=== PATIENT | female | born 1940 | race Caucasian/White ===

== ENCOUNTER 2020-01-03 07:56 | Emergency (ER) | payer MEDICARE ==
[~2020-01-03] VITALS: Ht 170.2 cm; Wt 76.2 kg
[~2020-01-03 07:56] MED LIST: DIOVAN80 MG PO; EVISTA60 MG PO; LIPITOR20 MG; METOPROLOL TART25 MG PO; NORVASC5 MG PO; OMEPRAZOLE40 MG; ZETIA10 MG PO
[2020-01-03] MEDS ORDERED: TETANUS/DIPHTHERIA TOX ADULT 0.5 ML SYR IM ONE (08:30)
--- NOTE | 2020-01-03 08:46 | Emergency Department Note ---
History of Present Illnes History of Present Illness Chief Complaint: General Medicine Complaints History of Present Illness This is a 79 year old female Patient states that around 0700 she fell at home from a standing position, tripped over threshold from tile to carpet. Hit head but patient denies any dizziness, vertigo or LOC. 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 Any updates have been documented here. Past Medical History Recent Fever: No Clinical Suspicion of Infectio: No New/Unexplained Change in Ment: No Past Medical History: Hypertension, CAD, Hyperlipedemia Other Medical History: CIPD (autoimmune disorder) Other Surgery: Bypass 2009 Social History Smoking Cessation: Never Smoker Counseling Performed: No Alcohol Use: None Any Illegal Drug Use: No TB Exposure/Symptoms: No Physically hurt or threatened: No Family History Family history of heart diseas: Yes Other Last Tetanus: UTD Any Pre-Existing Lines (PICC,: No Review of Systems Review of Systems Constitutional: Reports no symptoms EENTM: Reports no symptoms Cardiovascular: Reports no symptoms Respiratory: Reports no symptoms Gastrointestinal: Reports no symptoms Genitourinary: Reports no symptoms Musculoskeletal: Reports as per HPI Integumentary: Reports no symptoms Neurological: Reports as per HPI Psychological: Reports no symptoms Endocrine: Reports no symptoms Hematological/Lymphatic: Reports no symptoms Physical Exam Related Data Allergies: Coded Allergies: Shellfish (Verified Allergy, Intermediate, hives swelling, 07/11/14) sulfamethoxazole (Verified Allergy, Mild, itching, 01/03/20) trimethoprim (Verified Allergy, Mild, itching, 01/03/20) Triage Vital Signs Vital Signs Date Time Temp Pulse Resp B/P (MAP) Pulse Ox O2 Delivery O2 Flow Rate FiO2 01/03/20 08:10 98.0 71 18 174/69 100 Room Air Vital signs reviewed: Yes Physical Exam CONSTITUTIONAL Constitutional: Present well-developed, Present well-nourished HENT HENT: Present normocephalic, Present oropharynx clear/moist, Present oropharynx normal, Present other (6 cm hematoma to right supra-orbital forehead, small superficial abrasion to nasal bridge. denies epistaxis & no septal hematoma); Absent nasal discharge, Absent rhinorrhea HENT L/R: Present left ext ear normal, Present right ext ear normal EYES Eyes: Reports PERRL, Reports conjunctivae normal NECK Neck: Present ROM normal PULMONARY Pulmonary: Present effort normal, Present breath sounds normal CARDIOVASCULAR Cardiovascular: Present regular rhythm, Present heart sounds normal, Present capillary refill normal, Present normal rate GASTROINTESTINAL Abdominal: Present soft, Present nontender, Present bowel sounds normal GENITOURINARY Genitourinary: Present exam deferred SKIN Skin: Present other (small superficial abrasion to bridge of nose) MUSCULOSKELETAL Musculoskeletal: Present ROM normal NEUROLOGICAL Neurological: Present alert, Present oriented x 3, Present no gross motor or sensory deficits PSYCHOLOGICAL Psychological: Present mood/affect normal, Present judgement normal Results Imaging Imaging results reviewed: Yes Impressions CT BRAIN WO HISTORY: Trauma COMPARISON: None. Technique: Noncontrast axial scans were obtained from skull base to the vertex. Coronal and sagittal reconstructions obtained from the axial data. One or more of the following dose reduction techniques were used: Automated exposure control, adjustment of the mA and/or kV according to patient size, and/or utilization of iterative reconstruction technique. DISCUSSION: Scalp/Skull: Right frontal scalp/supraorbital hematoma. No calvarial fracture. Brain sulci: Mildly prominent. Ventricles: Compensatory dilatation. Extra-axial spaces: No masses or fluid collections. Carotid siphon calcifications are present. Parenchyma: Mild bilateral deep white matter hypodensity is likely chronic microvascular ischemic change. There is an old small cortical infarct in the left posterior cerebellum. Otherwise, no masses, hemorrhage, or large vascular territory acute infarct. Dural sinuses: No abnormal densities. Sellar/Suprasellar region: Intact. Skull base: Intact. Incidental findings: None. IMPRESSION: 1. No acute intracranial abnormalities. 2. Mild supratentorial chronic microvascular ischemic change. Mild generalized cerebral volume loss. 3. 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 Signed by: Dr. Eric Oliver M.D. on 01/03/2020 9:32 AM Assessment & Plan Medical Decision Making MDM s/p fall tripped over threshold, hit head with hematoma to right forehead, on Pletal for CAD - check CT head and c-spine - r/o intracerebral hemorrhage, c- spine fx Reassessment Reassessment f/u PCP, Tylenol as directed, Head sheet precautions, RTED prn Assessment & Plan Final Impression: (1) Fall (2) Traumatic hematoma of forehead (3) Abrasion of nose Depart Disposition: HOME, SELF-CARE Last Vital Signs Date Time Temp Pulse Resp B/P (MAP) Pulse Ox O2 Delivery O2 Flow Rate FiO2 01/03/20 08:10 98.0 71 18 174/69 100 Room Air Home Meds Reported Medications Omeprazole (OMEPRAZOLE) 40 Mg Capsule., 07/11/14 Metoprolol Tartrate (METOPROLOL TARTRATE) 25 Mg Tablet, 25 MG PO BID, TAB 07/11/14 Amlodipine Besylate (NORVASC) 5 Mg Tab, 10 MG PO DAILY, #30 TAB 15 Valsartan (DIOVAN) 80 Mg Tab, 80 MG PO DAILY, TAB 15 Raloxifene Hcl (EVISTA) 60 Mg Tablet, 60 MG PO DAILY, #30 TAB 07/11/14 Atorvastatin Calcium (LIPITOR) 20 Mg Tablet, 10 MG DAILY, #30 TAB 15 Ezetimibe (ZETIA) 10 Mg Tablet, 10 MG PO DAILY, #30 TAB 15 Medications in the ED Tetanus/ Diphtheria Toxoids 0.5 ml ONCE ONCE IM ; Start 01/03/20 at 08:30; Stop 01/03/20 at 08:31; Status DC CHRISTEL COURTNEY MD Jan 03, 2020 08:46
--- NOTE | 2020-01-03 09:36 | Diagnostic Imaging Report ---
CT BRAIN WO HISTORY: Trauma COMPARISON: None. Technique: Noncontrast axial scans were obtained from skull base to the vertex. Coronal and sagittal reconstructions obtained from the axial data. One or more of the following dose reduction techniques were used: Automated exposure control, adjustment of the mA and/or kV according to patient size, and/or utilization of iterative reconstruction technique. DISCUSSION: Scalp/Skull: Right frontal scalp/supraorbital hematoma. No calvarial fracture. Brain sulci: Mildly prominent. Ventricles: Compensatory dilatation. Extra-axial spaces: No masses or fluid collections. Carotid siphon calcifications are present. Parenchyma: Mild bilateral deep white matter hypodensity is likely chronic microvascular ischemic change. There is an old small cortical infarct in the left posterior cerebellum. Otherwise, no masses, hemorrhage, or large vascular territory acute infarct. Dural sinuses: No abnormal densities. Sellar/Suprasellar region: Intact. Skull base: Intact. Incidental findings: None. IMPRESSION: 1. No acute intracranial abnormalities. 2. Mild supratentorial chronic microvascular ischemic change. Mild generalized cerebral volume loss. 3. 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 Signed by: Dr. Eric Oliver M.D. on 01/03/2020 9:32 AM
--- NOTE | 2020-01-03 09:47 | Diagnostic Imaging Report ---
CT CERVICAL SPINE WO HISTORY: Trauma COMPARISON: Concurrent head CT TECHNIQUE: CT of the cervical spine without contrast. Sagittal and coronal reformations were created. One or more of the following dose reduction techniques were used: Automated exposure control, adjustment of the mA and/or kV according to patient size, and/or utilization of iterative reconstruction technique. FINDINGS: Bone demineralization limits evaluation. Cervical lordosis is preserved. There is no scoliosis. No definite acute fracture or compression deformity is seen. The craniocervical junction is intact. No gross spinal canal masses are seen. The paravertebral and paraspinal soft tissues are unremarkable. There are advanced spondylotic changes at C5-C6 and C6-C7. Prominent multilevel bilateral facet arthrosis is present; there is associated mild grade 1 anterolisthesis of C7 on T1. Prominent atlantoaxial arthrosis is present as well. There is at least mild canal stenosis at C5-C6 and C6-C7 due to posterior disc osteophyte complexes. Multilevel foraminal stenoses due to uncovertebral and facet arthrosis are also present - moderate bilaterally at C5-C6 and C6-C7. There is mild scarring in the lung apices. Mild bilateral carotid bulb calcified plaque is present. IMPRESSION: 1. No acute osseous abnormalities. 2. Degenerative changes as described above. Signed by: Dr. Eric Oliver M.D. on 01/03/2020 9:44 AM
[2020-01-03 09:55] VITALS: BP 174/92
== END 2020-01-03 10:32 | disposition home or self-care (01) ==
LOC: ER 08:15
DX: S00.83XA Contusion of other part of head, initial encounter (principal); S00.31XA Abrasion of nose, initial encounter; W01.0XXA Fall on same level from slipping, tripping and stumbling without subsequent striking against object, initial encounter; Y93.01 Activity, walking, marching and hiking; Y92.008 Other place in unspecified non-institutional (private) residence as the place of occurrence of the external cause; I10 Essential (primary) hypertension; I25.10 Atherosclerotic heart disease of native coronary artery without angina pectoris; E78.5 Hyperlipidemia, unspecified; Z86.2 Personal history of diseases of the blood and blood-forming organs and certain disorders involving the immune mechanism
CPT/HCPCS: 70450; 72125; 90714; 99283

== ENCOUNTER 2020-09-26 08:55 | Emergency (ER) | payer MEDICARE ==
[~2020-09-26] VITALS: Ht 170.2 cm; Wt 76.2 kg
== END 2020-09-26 11:52 | disposition home or self-care (01) ==
LOC: ER 09:24
DX: M79.605 Pain in left leg (principal); I82.412 Acute embolism and thrombosis of left femoral vein; I10 Essential (primary) hypertension; E78.5 Hyperlipidemia, unspecified; I25.10 Atherosclerotic heart disease of native coronary artery without angina pectoris
CPT/HCPCS: 93970; 99283

== ENCOUNTER 2021-09-22 16:37 | Emergency (ER) | payer MEDICARE ==
[~2021-09-22] VITALS: Ht 170.2 cm; Wt 76.2 kg
[2021-09-22 18:41] LABS: BASOPHILS % 0.7 % (0.0-1.0); EOSINOPHILS % 0.7 % (0.0-6.0); HEMOGLOBIN 10.9 g/dL (12.0-16.0); LYMPHOCYTES # (AUTO) 1.1 (1.0-3.2); LYMPHOCYTES % 27.4 % (18.0-39.1); MEAN CORPUSCULAR HGB CONC 34.1 g/dL (31-35); MEAN CORPUSCULAR VOLUME 85.1 fL (81-99); MONOCYTES # (AUTO) 0.5 (0.2-0.8); MONOCYTES % 12.3 % (4.4-11.3); NEUTROPHILS # (AUTO) 2.4 (2.1-6.9); NEUTROPHILS % 58.7 % (38.7-80.0); PLATELET COUNT 169 x10e3/uL (140-360); RED BLOOD COUNT 3.76 x10e6/uL (3.6-5.1); RED CELL DISTRIBUTION WIDTH 14.1 % (11.7-14.4)
[2021-09-22 18:57] LABS: ALBUMIN/GLOBULIN RATIO 0.5 (0.8-2.0); CALCIUM 8.6 mg/dL (8.4-10.2); CREATININE, SERUM 1.31 mg/dL (0.57-1.11)
[2021-09-22 19:09] LABS: CREATINE KINASE MB 4.2 ng/mL (0-5.0)
[2021-09-22] MEDS ORDERED: HYDRALAZINE HCL 20 MG/ML VIAL IV STA (19:19)
[2021-09-22] MEDS ORDERED: SODIUM CHLORIDE 0.9% 500ML 500 ML IV STA (19:19)
[2021-09-22] MEDS ORDERED: HYDRALAZINE HCL 20 MG/ML VIAL ONE (19:35)
[2021-09-22 20:16] VITALS: BP 156/78
== END 2021-09-22 20:17 | disposition home or self-care (01) ==
LOC: ER 16:50
DX: I49.1 Atrial premature depolarization (principal); R55 Syncope and collapse; S09.90XA Unspecified injury of head, initial encounter; M25.512 Pain in left shoulder; E87.1 Hypo-osmolality and hyponatremia; I10 Essential (primary) hypertension; I25.810 Atherosclerosis of coronary artery bypass graft(s) without angina pectoris; E78.5 Hyperlipidemia, unspecified; D89.89 Other specified disorders involving the immune mechanism, not elsewhere classified; W19.XXXA Unspecified fall, initial encounter; Z88.2 Allergy status to sulfonamides; Z88.1 Allergy status to other antibiotic agents; Z91.013 Allergy to seafood; Z79.899 Other long term (current) drug therapy; Z95.1 Presence of aortocoronary bypass graft
CPT/HCPCS: 36415; 70450; 71045; 72125; 73030; 80053; 82550; 82553; 84484; 85025; 99284; J0360; J7040; 93005

== ENCOUNTER 2021-10-16 08:27 | Emergency (ER) | payer MEDICARE ==
[~2021-10-16] VITALS: Ht 170.2 cm; Wt 76.2 kg
[2021-10-16 12:36] VITALS: BP 192/82
== END 2021-10-16 12:40 | disposition home or self-care (01) ==
LOC: ER 08:35
DX: R60.9 Edema, unspecified (principal); M79.89 Other specified soft tissue disorders
CPT/HCPCS: 93971; 99283